=== PATIENT | female | born 1980 | race Caucasian/White ===

== ENCOUNTER 2017-12-21 17:59 | Emergency (ER) | payer OTHER ==
[~2017-12-21] VITALS: Ht 165.1 cm; Wt 62.6 kg
[~2017-12-21 17:59] MED LIST: FERROUS SU325 ( 65 ) PO; FOLIC + B12 TAB1 TAB; FOLIC ACID1 MG PO; PRENATAL1 TAB; TRAM1TAB98 PO
[2017-12-22] MEDS ORDERED: ULTRACET PO (04:42)
[2017-12-22] MEDS ORDERED: SFROWASA4 GM/60 ML RECTAL (04:42)
[2017-12-22] MEDS ORDERED: MEDROLPACK PO (04:42)
[2017-12-22] MEDS ORDERED: INTESTINEX680 M1 PO (04:42)
== END 2017-12-22 06:28 | disposition home or self-care (01) ==
LOC: ER 17:59
DX: K51.80 Other ulcerative colitis without complications (principal)

== ENCOUNTER 2023-05-08 18:53 | Emergency (ER) | payer OTHER ==
[~2023-05-08] VITALS: Ht 165.1 cm; Wt 67.1 kg
[~2023-05-08 18:53] MED LIST changes: +INTESTINEX680 M1 PO; +MEDROLPACK PO; +SFROWASA4 GM/60 ML RECTAL; +ULTRACET PO
[2023-05-08 21:18] LABS: HEMOGLOBIN 12.4 g/dL (12.0-15.00); MEAN CORPUSCULAR HEMOGLOBIN 29.2 pg (27.00-32.0); MEAN CORPUSCULAR HGB CONC 33.6 g/dl (32.0-36.0); PLATELET COUNT 227 K/uL (150-450); RED BLOOD COUNT 4.25 M/uL (4.00-6.00)
[2023-05-08 21:37] LABS: INR 1.09; PARTIAL THROMBOPLASTIN TIME 26.4 SECONDS (22.0-34.0); PROTHROMBIN TIME 11.4 SECONDS (9.0-11.5)
[2023-05-08 21:39] LABS: CALCIUM 8.9 mg/dL (8.5-10.1); CREATININE SERUM 0.83 mg/dL (0.55-1.02); GFR 75.39; POTASSIUM 3.43 mEq/L (3.5-5.1)
[2023-05-08 23:05] LABS: PH,URINE 6.5 (5.0-8.0); URINE APPEARANCE Clear; URINE BILIRRUBIN Negative (NEGATIVE); URINE BLOOD Trace; URINE COLOR Yellow; URINE GLUCOSE Negative (NEGATIVE); URINE LEUKOCYTE Large; URINE NITRATE Negative; URINE PROTEIN Negative (NEGATIVE); URINE UROBILINOGEN 0.2 E.U./dl
[2023-05-08 23:10] LABS: URINE EPITHELIAL CELLS 35.5 uL (0.0-38.8); URINE RBC 3.1 uL (0.0-20.8); URINE WBC 426.8 uL (0.0-23.2)
[2023-05-08] MEDS ORDERED: CIPRO500 MG PO (23:52)
[2023-05-08] MEDS ORDERED: INTESTINEX680 M1 PO (23:52)
[2023-05-08] MEDS ORDERED: DICY20TA PO (23:52)
== END 2023-05-09 00:05 | disposition home or self-care (01) ==
LOC: ER 19:02
PROVIDERS: General Practice
DX: K52.9 Noninfective gastroenteritis and colitis, unspecified (principal); N39.0 Urinary tract infection, site not specified; Z88.6 Allergy status to analgesic agent
CPT/HCPCS: 36415; 74177; Q9965

== ENCOUNTER 2025-05-02 11:34 | Inpatient (IN) | payer OTHER ==
[~2025-05-02] VITALS: Ht 165.1 cm; Wt 60.3 kg
[~2025-05-02 11:34] MED LIST changes: +CIPRO500 MG PO; +DICY20TA PO
--- NOTE | 2025-05-02 11:53 | NUR ---
PTE CON HX DE COLITIS ULCERATIVA REFIERE DOLOR ABDOMINAL Y SANGRADO RECTAL CON 14 PEREZ DE EVOLUCION.
[2025-05-02] MEDS ORDERED: DIPHENHYDRAMINE HCL 50 MG/ML VIAL 1ML IV ONE (13:30)
[2025-05-02] MEDS ORDERED: METHYLPREDNISOLONE SOD SUCC 125 MG VIAL IV ONE (13:30)
[2025-05-02] MEDS ORDERED: FAMOTIDINE/PF 20 MG/2 ML VIAL IV ONE (13:30)
[2025-05-02] MEDS ORDERED: 0.9 % SODIUM CHLORIDE 1,000 ML IV ONE (13:30)
[2025-05-02] MEDS ORDERED: ONDANSETRON HCL 2 MG/ML VIAL IV ONE (13:30)
[2025-05-02] MEDS ORDERED: DIPHENHYDRAMINE HCL 50 MG/ML VIAL 1ML ONE (13:38)
[2025-05-02] MEDS ORDERED: METHYLPREDNISOLONE SOD SUCC 125 MG VIAL ONE (13:38)
[2025-05-02] MEDS ORDERED: ONDANSETRON HCL 2 MG/ML VIAL ONE (13:38)
[2025-05-02] MEDS ORDERED: FAMOTIDINE/PF 20 MG/2 ML VIAL ONE ×2 (13:39→19:29)
[2025-05-02 14:15] LABS: BASO % 0.8 % (0.1-1.2); EOS # 0.75 (0.04-0.54); EOS % 8.1 % (0.7-7.0); LYMPH # 1.47 (1.18-3.74); LYMPH % 15.9 % (19.3-53.1); MEAN PLATELET VOLUME 11.40 fl (9.4-12.4); MONO # 0.62 (0.24-0.82); MONO % 6.7 % (4.7-12.5); NEUT # 6.30 (1.56-6.13); NEUT % 68.2 % (34.0-71.1); RED CELL DISTRIBUTION WIDTH 15.0 % (11.6-14.4)
[2025-05-02 14:21] LABS: ERYTHROCYTE SEDIMENTATION RATE 56 mm/hr (0-20)
[2025-05-02 14:38] LABS: ALT/SGPT 65.0 U/L (12-78); AST/SGOT 44.0 U/L (15-37); BILIRUBIN TOTAL 0.28 mg/dL (0.3-1.2); BUN CREA RATIO 22.0 (7.0-25.0); CREATININE SERUM 0.54 mg/dL (0.55-1.02); GFR 122.64; GLOBULINA 4.3 G/DL (2.4-3.5); GLUCOSE FASTING 92.0 mg/dL (65-100); INR 1.05; OSMOLALITY SERUM 277.0 MOSM/KG (275-295)
--- NOTE | 2025-05-02 14:42 | NUR ---
PACIENTE ALERTA Y ORIENTADA X3. SE EDUCA SOBRE PROCESO DE NICOLE DE MUESTRAS, CANALIZACION Y ADMINISTRACION DE MEDICAMENTOS, REFIERE ENTENDER. SE EJECUTAN ORDENES BAJO MEDIDAS ASEPTICAS. SE ENTREGA ENVASE PARA MUESTRA DE U/A Y FECALES. PENDIENTE A CT.
[2025-05-02 15:07] LABS: COVID-19 AG NEGATIVE (NEGATIVE)
[2025-05-02 15:15] LABS: URINE APPEARANCE Clear; URINE BILIRRUBIN Small (NEGATIVE); URINE BLOOD Negative; URINE COLOR Orange; URINE GLUCOSE Negative (NEGATIVE); URINE LEUKOCYTE Small; URINE NITRATE Positive; URINE PROTEIN Negative (NEGATIVE); URINE UROBILINOGEN 1.0 E.U./dl
[2025-05-02 15:21] LABS: URINE BACTERIA 294.0 uL (0.0-1933); URINE EPITHELIAL CELLS 41.4 uL (0.0-38.8); URINE RBC 7.0 uL (0.0-20.8); URINE WBC 19.8 uL (0.0-23.2)
[2025-05-02 15:23] LABS: URINE CAST 0.00 uL (0.0-1.40); URINE KETONE 40 (NEGATIVE)
[2025-05-02 15:23] LABS: FECAL LEUKOCYTES POSITIVE (NEGATIVE); ob POSITIVE (NEGATIVE)
[2025-05-02] MEDS ORDERED: PIPERACILLIN/TAZOBACTAM SODIUM 3.375 GM in DEXTROSE 5 % IN WATER 100 ML IV SCH (18:53)
[2025-05-02] MEDS ORDERED: FAMOTIDINE/PF 20 MG in 0.9 % SODIUM CHLORIDE 8 ML IV PUSH SCH (18:54)
[2025-05-02] MEDS ORDERED: MORPHINE SULFATE 2 MG/ML SYRINGE IV PRN (19:00)
[2025-05-02] MEDS ORDERED: 0.9 % SODIUM CHLORIDE 1,000 ML IV SCH (19:00)
[2025-05-02] MEDS ORDERED: ONDANSETRON HCL 4 MG in 0.9 % SODIUM CHLORIDE 50 ML IV PRN (19:00)
[2025-05-02] MEDS ORDERED: ACETAMINOPHEN 500 MG GEL..CAP PO PRN (19:00)
[2025-05-02] MEDS ORDERED: HYOSCYAMINE SULFATE 0.125 MG TAB.SUBL SL ONE (19:00)
[2025-05-02] MEDS ORDERED: PIPERACILLIN/TAZOBACTAM SODIUM 3.375 GM VIAL IV ONE (19:29)
[2025-05-02] MEDS ORDERED: HYOSCYAMINE SULFATE 0.125 MG TAB.SUBL ONE (19:29)
[2025-05-02 22:07] VITALS: BP 104/62; O2SAT 98
[2025-05-03 02:58] VITALS: BP 99/65; O2SAT 97
[2025-05-03 08:26] VITALS: BP 104/68
[2025-05-03 16:00] VITALS: BP 107/72; O2SAT 99
[2025-05-04 01:30] VITALS: BP 101/60; O2SAT 98
[2025-05-04] MEDS ORDERED: LACTOBACILLUS ACIDOPHILUS 1 CAP CAP PO SCH (09:00)
[2025-05-04 09:04] VITALS: BP 118/61
[2025-05-04 18:58] VITALS: BP 111/77
[2025-05-04] MEDS ORDERED: METHYLPREDNISOLONE SOD SUCC 125 MG VIAL IV STA (22:51)
[2025-05-05 02:17] VITALS: BP 99/64; O2SAT 97
[2025-05-05] MEDS ORDERED: METHYLPREDNISOLONE SOD SUCC 40 MG VIAL IV SCH (09:00)
[2025-05-05 09:31] VITALS: BP 115/76
[2025-05-05 17:57] VITALS: BP 112/78
[2025-05-06 03:42] VITALS: BP 98/65; O2SAT 98
[2025-05-06 09:50] VITALS: BP 126/74; O2SAT 99
[2025-05-06] MEDS ORDERED: INTESTINEX680 M1 PO (13:59)
[2025-05-06] MEDS ORDERED: AMOX-CLAV 875-1 EACH PO (13:59)
== END 2025-05-06 16:35 | disposition home or self-care (01) | DRG 690 ==
LOC: ER 11:34 → MEDI 19:33 → MEDJ 19:33 → MEDI 19:39
PROVIDERS: ADMIT Internal Medicine; ATTEND Internal Medicine
PROC: BW21YZZ Computerized Tomography (CT Scan) of Abdomen and Pelvis using Other Contrast (ICD-10-PCS; principal; 2025-05-02)
DX: N39.0 Urinary tract infection, site not specified (principal); Z78.9 Other specified health status; Z87.19 Personal history of other diseases of the digestive system